=== PATIENT | female | born 1940 | race Caucasian/White ===

== ENCOUNTER → 2017-06-18 | Outpatient (CLI) | payer MEDICARE, BC | END | disposition home or self-care (01) | LOC: CFH 10:01 | PROVIDERS: ATTEND Internal Medicine Cardiovascular Disease | DX: I08.3 Combined rheumatic disorders of mitral, aortic and tricuspid valves (principal); I48.91 Unspecified atrial fibrillation; I10 Essential (primary) hypertension; Z79.01 Long term (current) use of anticoagulants; Z95.0 Presence of cardiac pacemaker | CPT/HCPCS: 93306 ==

== ENCOUNTER → 2017-12-26 | Outpatient (CLI) | payer MEDICARE, BC ==
[~2017-12-26] MED LIST: REGADENOSON 0.4 MG/5 ML SYRINGE ONE
== END | disposition home or self-care (01) ==
LOC: CFH 08:25
PROVIDERS: ATTEND Physician Assistant
DX: I08.3 Combined rheumatic disorders of mitral, aortic and tricuspid valves (principal); I11.9 Hypertensive heart disease without heart failure; I48.91 Unspecified atrial fibrillation
CPT/HCPCS: 78452; 93017; 93306; A9502; J2785

== ENCOUNTER → 2018-08-12 | Outpatient (CLI) | payer MEDICARE, BC | END | disposition home or self-care (01) | LOC: CFH 13:04 | PROVIDERS: ATTEND Internal Medicine Cardiovascular Disease | DX: I08.8 Other rheumatic multiple valve diseases (principal); I10 Essential (primary) hypertension; E78.5 Hyperlipidemia, unspecified | CPT/HCPCS: 93306 ==

== ENCOUNTER → 2019-09-22 | Outpatient (CLI) | payer MEDICARE, BC | END | disposition home or self-care (01) | LOC: CFH 08:32 | PROVIDERS: ATTEND Internal Medicine Cardiovascular Disease | DX: I08.8 Other rheumatic multiple valve diseases (principal); I11.9 Hypertensive heart disease without heart failure | CPT/HCPCS: 93306 ==

== ENCOUNTER → 2020-07-22 | Outpatient (CLI) | payer MEDICARE, BC | END | disposition home or self-care (01) | LOC: CFH 12:20 | PROVIDERS: ATTEND Internal Medicine Cardiovascular Disease | DX: I08.8 Other rheumatic multiple valve diseases (principal); I11.9 Hypertensive heart disease without heart failure | CPT/HCPCS: 93306 ==

== ENCOUNTER 2020-08-25 11:37 | Day surgery (SDC) | payer MEDICARE, BC ==
[~2020-08-25] VITALS: Ht 170.2 cm; Wt 89.0 kg
[2020-08-25] MEDS ORDERED: SODIUM CHLORIDE 0.9% 1,000 ML IV SCH (12:00)
[2020-08-25] MEDS ORDERED: METO-95 PO (12:10)
[2020-08-25] MEDS ORDERED: FURO40TA6 PO (12:10)
[2020-08-25] MEDS ORDERED: WARF-36 PO (12:10)
[2020-08-25] MEDS ORDERED: DILT180C53 PO (12:10)
[2020-08-25] MEDS ORDERED: OMEP-110 PO (12:12)
[2020-08-25] MEDS ORDERED: HYDR1TAB53 PO (12:12)
[2020-08-25] MEDS ORDERED: LEVO100T5 PO (12:12)
[2020-08-25] MEDS ORDERED: ALLO100T64 PO (12:12)
[2020-08-25 13:04] LABS: BASOPHILS % (AUTO) 1 % (0-1); EOSINOPHILS % (AUTO) 3 % (1-7); LYMPHOCYTES % (AUTO) 24 % (22-44); MEAN CORPUSCULAR HEMOGLOBIN 29.7 pg (27.0-34.8); MEAN CORPUSCULAR HGB CONC 33.4 g/dL (32.4-35.8); MEAN PLATELET VOLUME 7.9 fL (7.4-10.4); MONOCYTES % (AUTO) 7 % (2-9); NEUTROPHILS % (AUTO) 66 % (42-75); PLATELET COUNT 245 x10^3/uL (130-400); RED BLOOD COUNT 4.57 x10^6/uL (3.82-5.3); RED CELL DISTRIBUTION WIDTH 15.2 % (9.6-15.2)
[2020-08-25 13:12] LABS: ALANINE AMINOTRANSFERASE 16 U/L (12-78); ALBUMIN 3.8 g/dL (3.4-5.0); CALCIUM 9.2 mg/dL (8.5-10.1); CREATININE 0.95 mg/dL (0.55-1.02); INTERNATIONAL NORMALIZED RATIO 1.52 (0.93-1.1); MD NO; PROTHROMBIN TIME 16.1 Seconds (9.6-11.5)
[2020-08-25 13:28] LABS: ANION GAP 4 mmol/L (5-15); CHLORIDE 107 mmol/L (98-107)
[2020-08-25 13:30] LABS: BILIRUBIN,TOTAL 0.8 mg/dL (0.2-1.0)
[2020-08-25 13:31] LABS: ALKALINE PHOSPHATASE 93 U/L (45-117); TOTAL PROTEIN 7.1 g/dL (6.4-8.2)
[2020-08-25] MEDS ORDERED: MIDAZOLAM 1 MG/ML, 5ML ONE (13:35)
[2020-08-25] MEDS ORDERED: TICAGRELOR 90 MG TABLET ONE (13:36)
[2020-08-25] MEDS ORDERED: BIVALIRUDIN 250 MG ONE (13:36)
[2020-08-25] MEDS ORDERED: LIDOCAINE-MPF 1%, 5ML ONE (13:36)
[2020-08-25] MEDS ORDERED: VERAPAMIL 2.5 MG/ML, 2ML ONE (13:36)
[2020-08-25] MEDS ORDERED: FENTANYL PF 100 MCG/2ML ONE (13:36)
[2020-08-25] MEDS ORDERED: HEPARIN 1,000 UNITS/ML, 10ML ONE (13:36)
== END 2020-08-25 16:25 | disposition home or self-care (01) ==
LOC: CACL 11:37
PROVIDERS: ATTEND Internal Medicine Cardiovascular Disease
DX: Z01.810 Encounter for preprocedural cardiovascular examination (principal); I35.0 Nonrheumatic aortic (valve) stenosis; I70.0 Atherosclerosis of aorta; I48.20 Chronic atrial fibrillation, unspecified; I36.1 Nonrheumatic tricuspid (valve) insufficiency; E03.9 Hypothyroidism, unspecified; I10 Essential (primary) hypertension; M10.9 Gout, unspecified; Z79.01 Long term (current) use of anticoagulants; Z79.890 Hormone replacement therapy; Z79.891 Long term (current) use of opiate analgesic; Z79.899 Other long term (current) drug therapy; Z95.0 Presence of cardiac pacemaker
CPT/HCPCS: 36415; 80053; 85025; 85610; 85730; 93454; 99156; C1769; C1894; J1644; J2250; J3010; Q9967; 76937; J0583

== ENCOUNTER → 2020-09-15 | Outpatient (CLI) | payer MEDICARE, BC ==
[~2020-09-15] MED LIST changes: +ALLO100T64 PO; +DILT180C53 PO; +FURO40TA6 PO; +HYDR1TAB53 PO; +LEVO100T5 PO; +METO-95 PO; +OMEP-110 PO; -REGADENOSON 0.4 MG/5 ML SYRINGE ONE; +VISIPAQUE 270 MG/ML, 150ML BOTTLE ONE; +WARF-36 PO
== END | disposition home or self-care (01) ==
LOC: CVU 09:28
PROVIDERS: ATTEND Internal Medicine Cardiovascular Disease
DX: I65.23 Occlusion and stenosis of bilateral carotid arteries (principal); I35.8 Other nonrheumatic aortic valve disorders; I70.0 Atherosclerosis of aorta; R91.1 Solitary pulmonary nodule; I10 Essential (primary) hypertension; N28.89 Other specified disorders of kidney and ureter; Z95.2 Presence of prosthetic heart valve
CPT/HCPCS: 71275; 74174; 93880; Q9966

== ENCOUNTER 2020-10-05 05:52 | Inpatient (IN) | payer MEDICARE, BC ==
[~2020-10-05] VITALS: Ht 167.6 cm; Wt 85.9 kg
[~2020-10-05 05:52] MED LIST changes: -VISIPAQUE 270 MG/ML, 150ML BOTTLE ONE
[2020-10-05 06:19] VITALS: BP 144/69
[2020-10-05] MEDS ORDERED: APIX5TAB PO (06:22)
[2020-10-05] MEDS ORDERED: SODIUM CHLORIDE 0.9% 1,000 ML IV ONE (06:30)
[2020-10-05] MEDS ORDERED: ONDANSETRON 2MG/ML, 2ML IV PRN (06:30)
[2020-10-05 06:50] LABS: BASOPHILS % (AUTO) 1 % (0-1); EOSINOPHILS % (AUTO) 3 % (1-7); LYMPHOCYTES % (AUTO) 26 % (22-44); MEAN CORPUSCULAR HEMOGLOBIN 29.7 pg (27.0-34.8); MEAN CORPUSCULAR HGB CONC 33.3 g/dL (32.4-35.8); MEAN PLATELET VOLUME 7.9 fL (7.4-10.4); MONOCYTES % (AUTO) 7 % (2-9); NEUTROPHILS % (AUTO) 63 % (42-75); PLATELET COUNT 245 x10^3/uL (130-400); RED BLOOD COUNT 4.74 x10^6/uL (3.82-5.3); RED CELL DISTRIBUTION WIDTH 15.5 % (9.6-15.2)
[2020-10-05] MEDS ORDERED: FENTANYL PF 250 MCG/5ML ONE (06:56)
[2020-10-05 07:00] LABS: ALANINE AMINOTRANSFERASE 19 U/L (12-78); ALBUMIN 3.6 g/dL (3.4-5.0); ANION GAP 6 mmol/L (5-15); CALCIUM 9.5 mg/dL (8.5-10.1); CHLORIDE 106 mmol/L (98-107); CREATININE 0.91 mg/dL (0.55-1.02); INTERNATIONAL NORMALIZED RATIO 1.04 (0.93-1.1); PROTHROMBIN TIME 11.1 Seconds (9.6-11.5)
[2020-10-05] MEDS ORDERED: PROTAMINE SULFATE 10 MG/ML, 5ML ONE (07:00)
[2020-10-05 07:02] LABS: ALKALINE PHOSPHATASE 94 U/L (45-117); BILIRUBIN,TOTAL 0.8 mg/dL (0.2-1.0); TOTAL PROTEIN 7.1 g/dL (6.4-8.2)
[2020-10-05] MEDS ORDERED: HEPARIN 1,000 UNITS/ML, 10ML ONE (07:12)
[2020-10-05] MEDS ORDERED: NITROGLYCERIN 5 MG/ML, 10ML ONE (07:44)
[2020-10-05] MEDS ORDERED: VERAPAMIL 2.5 MG/ML, 2ML ONE (07:44)
[2020-10-05] MEDS ORDERED: PROPOFOL 10 MG/ML, 20ML ONE (08:24)
[2020-10-05] MEDS ORDERED: ROCURONIUM 10MG/ML,5ML ONE (08:24)
[2020-10-05] MEDS ORDERED: CEFAZOLIN 1,000 MG ONE (08:24)
[2020-10-05] MEDS ORDERED: ONDANSETRON 2MG/ML, 2ML ONE (08:24)
[2020-10-05] MEDS ORDERED: SUCCINYLCHOLINE 20 MG/ML, 10ML ONE (08:24)
[2020-10-05] MEDS ORDERED: DEXAMETHASONE 4 MG/ML, 5ML ONE (08:24)
[2020-10-05] MEDS ORDERED: LABETALOL 20 MG/4 ML IVPush PRN (08:30)
[2020-10-05] MEDS ORDERED: hydrALAzine 20 MG/ML, 1ML IVPush PRN (08:30)
[2020-10-05] MEDS ORDERED: HYDROcodone/APAP 5/325 TABLET PO PRN (08:30)
[2020-10-05] MEDS ORDERED: HYDROcodone/APAP 10/325 MG TABLET PO PRN (08:30)
[2020-10-05] MEDS ORDERED: FAMOTIDINE 20 MG/2 ML ONE (08:53)
[2020-10-05] MEDS: APIXABAN 5 MG TABLET PO SCH ×2 (09:00→20:49)
[2020-10-05] MEDS ORDERED: FAMOTIDINE 20 MG/2 ML IVPush ONE (09:00)
[2020-10-05] MEDS: LEVOTHYROXINE 100 MCG TABLET PO SCH (09:00)
[2020-10-05] MEDS: METOPROLOL SUCCINATE 100 MG TAB.ER.24H PO SCH ×2 (09:00→20:49)
[2020-10-05] MEDS: DILTIAZEM CD 180 MG CAP.ER.24H PO SCH ×2 (09:00→20:48)
[2020-10-05] MEDS ORDERED: FUROSEMIDE 40 MG TABLET PO SCH ×2 (09:00→21:00)
[2020-10-05] MEDS: ALLOPURINOL 100 MG TABLET PO SCH (09:00)
[2020-10-05 10:24] VITALS: BP 121/70
[2020-10-05] MEDS: OMEPRAZOLE 20 MG CAPSULE.DR PO SCH (10:44)
[2020-10-05] MEDS ORDERED: PHENOL THROAT SPRAY BOTTLE MM PRN (13:00)
[2020-10-05 14:18] VITALS: BP 118/59
[2020-10-05] MEDS: ACETAMINOPHEN 325 MG TABLET PO PRN (16:38)
[2020-10-05] MEDS: PHENOL THROAT SPRAY BOTTLE MM PRN ×2 (16:39→19:28)
[2020-10-05] MEDS: FUROSEMIDE 40 MG TABLET PO SCH (19:27)
[2020-10-05 19:34] VITALS: BP 136/80
[2020-10-05 20:46] VITALS: BP 144/83
[2020-10-06 01:27] VITALS: BP 137/74
[2020-10-06] MEDS: ACETAMINOPHEN 325 MG TABLET PO PRN (03:37)
[2020-10-06 05:28] LABS: BASOPHILS % (AUTO) 0 % (0-1); EOSINOPHILS % (AUTO) 0 % (1-7); LYMPHOCYTES % (AUTO) 9 % (22-44); MEAN CORPUSCULAR HEMOGLOBIN 29.8 pg (27.0-34.8); MEAN CORPUSCULAR HGB CONC 33.6 g/dL (32.4-35.8); MEAN PLATELET VOLUME 8.2 fL (7.4-10.4); MONOCYTES % (AUTO) 4 % (2-9); NEUTROPHILS % (AUTO) 86 % (42-75); PLATELET COUNT 181 x10^3/uL (130-400); RED BLOOD COUNT 4.13 x10^6/uL (3.82-5.3)
[2020-10-06 05:41] LABS: CHLORIDE 107 mmol/L (98-107)
[2020-10-06 05:49] LABS: ANION GAP 4 mmol/L (5-15); CALCIUM 9.4 mg/dL (8.5-10.1); CREATININE 0.84 mg/dL (0.55-1.02)
[2020-10-06 07:05] VITALS: BP 122/68
[2020-10-06] MEDS: METOPROLOL SUCCINATE 100 MG TAB.ER.24H PO SCH (09:30)
[2020-10-06] MEDS: OMEPRAZOLE 20 MG CAPSULE.DR PO SCH (09:30)
[2020-10-06] MEDS: LEVOTHYROXINE 100 MCG TABLET PO SCH (09:30)
[2020-10-06] MEDS: APIXABAN 5 MG TABLET PO SCH (09:30)
[2020-10-06] MEDS: DILTIAZEM CD 180 MG CAP.ER.24H PO SCH (09:31)
[2020-10-06] MEDS: FUROSEMIDE 40 MG TABLET PO SCH (09:31)
[2020-10-06] MEDS: ALLOPURINOL 100 MG TABLET PO SCH (09:31)
== END 2020-10-06 12:12 | disposition home or self-care (01) | DRG 267 ==
LOC: ORIP 05:52 → 5SO 10:03 → DCLOUNGE 10-06 12:02
PROVIDERS: ADMIT Internal Medicine Cardiovascular Disease; ATTEND Internal Medicine Cardiovascular Disease
PROC: B245ZZ4 Ultrasonography of Left Heart, Transesophageal (ICD-10-PCS; 2020-10-05)
PROC: B3101ZZ Fluoroscopy of Thoracic Aorta using Low Osmolar Contrast (ICD-10-PCS; 2020-10-05)
PROC: 02RF3KZ Replacement of Aortic Valve with Nonautologous Tissue Substitute, Percutaneous Approach (ICD-10-PCS; principal; 2020-10-05 07:30)
DX: I35.0 Nonrheumatic aortic (valve) stenosis (principal); Z00.6 Encounter for examination for normal comparison and control in clinical research program; D68.69 Other thrombophilia; I48.20 Chronic atrial fibrillation, unspecified; D72.829 Elevated white blood cell count, unspecified; Z20.822 Contact with and (suspected) exposure to COVID-19; I34.0 Nonrheumatic mitral (valve) insufficiency; I07.1 Rheumatic tricuspid insufficiency; I11.9 Hypertensive heart disease without heart failure; I27.20 Pulmonary hypertension, unspecified; Z95.0 Presence of cardiac pacemaker; Z79.899 Other long term (current) drug therapy; Z79.01 Long term (current) use of anticoagulants
CPT/HCPCS: 33361; 36415; 80048; 80053; 85025; 85347; 85610; 87635; 93005; 93306; 93312; 93321; 93325; 93355; C1760; C1769; C1894; G0378; J0690; J1100; J1644; J2405; J2704; J2720; J3010; J0330; Q9967

== ENCOUNTER → 2020-11-23 | Outpatient (CLI) | payer MEDICARE, BC ==
[~2020-11-23] MED LIST changes: +APIX5TAB PO
== END | disposition home or self-care (01) ==
LOC: CVU 10:23
PROVIDERS: ATTEND Internal Medicine Cardiovascular Disease
DX: Z01.810 Encounter for preprocedural cardiovascular examination (principal); I08.8 Other rheumatic multiple valve diseases; R06.02 Shortness of breath; I65.29 Occlusion and stenosis of unspecified carotid artery; I11.9 Hypertensive heart disease without heart failure
CPT/HCPCS: 93306